=== PATIENT | male | born 1945 | race Caucasian/White ===

== ENCOUNTER 2021-09-01 00:42 | Emergency (ER) | payer MEDICARE, OTHER, SELFPAY ==
--- NOTE | ~2021-09-01 | XR_ITS ---
EXAMINATION: XR chest 1V portable INDICATION: Shortness of breath TECHNIQUE: Portable AP chest at 0142 hours COMPARISON: None available FINDINGS: There is mild atelectasis of the left lung base. The lungs are free of focal airspace opaci ties. There is no pleural effusion or pneumothorax. The cardiac mediastinal silhouette is normal. Cor onary artery stents are noted. IMPRESSION: 1. No acute cardiopulmonary abnormality. Reviewed, dictated and finalized at location A. NCIAL AID ADMINISTRATOR
--- NOTE | 2021-09-01 00:44 | ECG_ITS ---
Measurements Intervals [place] Rate: 102 P: NM: 0 QRS: 43 QRSD: 115 T: 78 QT: 312 QTc: 408 Interpretive Statements SINUS OR ECTOPIC ATRIAL TACHYCARDIA ATRIAL PREMATURE COMPLEX INTRAVENTRICULAR CONDUCTION DELAY BASELINE ARTIFACT- I, II, III, AVR, AVL, AVF, V1-V6 ABNORMAL ECG Electronically Signed On 09-01-2021 7:57:42 E COMMERCE MANAGER by Jones Carl D.O.
[2021-09-01 00:45] VITALS: BP 158/107; PULSE 101; RESP 22; TEMP 36.9; O2SAT 97
[2021-09-01 00:54] VITALS: O2SAT 100
[2021-09-01 01:17] LABS: Basophils Percent Auto 0.3 % (0.2-1.2); Eosinophils Absolute Auto 0.2 K/mm3 (0-0.3); Eosinophils Percent Auto 1.8 % (0-4.4); Hematocrit 42.4 % (42.0-52.0); Hemoglobin 13.1 g/dL (14.0-18.0); Immature Granulocyte Absolute 0.02 K/mm3 (0.00-0.031); Immature Granulocyte Percent A 0.2 % (0-0.5); Lymphocytes Absolute Auto 0.55 K/mm3 (0.9-3.2); Lymphocytes Percent Auto 5.9 % (18.3-44.2); Mean Corpuscular HGB Conc 30.9 g/dl (32-36); Mean Corpuscular Hemoglobin 28.6 pg (26-34); Mean Corpuscular Volume 92.6 fl (80-100); Mean Platelet Volume 10.2 fl (7.4-10.4); Monocytes Absolute Auto 0.2 K/mm3 (0.1-0.6); Monocytes Percent Auto 1.6 % (2.6-8.5); Neutrophils Absolute Auto 8.5 K/mm3 (1.3-6.7); Neutrophils Percent Auto 90.2 % (45.5-73.1); Platelet Count Result 190 k/mm3 (150-375); Red Blood Count 4.58 M/mm3 (4.6-6.20); Red Cell Distribution Width 13.5 % (11.5-14.5); White Blood Count 9.4 K/mm3 (4.5-10.0)
[2021-09-01 01:36] LABS: Alanine Aminotransferase 14 U/L (4-50); Albumin Level 4.7 g/dL (3.5-5.1); Alkaline Phosphatase 89 U/L (38-126); Anion Gap 12 mmol/L (8-16); Aspartate Amino Transferase 22 U/L (17-59); Bilirubin,Total 0.9 mg/dL (0.2-1.3); Blood Urea Nitrogen 31 mg/dL (9-20); Calcium 10.1 mg/dL (8.4-10.2); Carbon Dioxide 27 mmol/L (22-30); Chloride 100 mmol/L (98-107); Estimated CRCL calculation 35 ml/min; Estimated Glomerular Filt Rate 42; Glucose 100 mg/dL (65-110); Potassium 3.6 mmol/L (3.4-5.0); Sodium 139 mmol/L (137-145)
[2021-09-01 01:37] LABS: Alveolar/Arterial O2 Gradient 33.9 mmHg; Base Excess ABG 2.3 mEq/l (+/-2.0); Carboxyhemoglobin 0.3 % THb (0-2.0); Fractional Inspired Oxygen 21 %; HCO3 ABG 24.8 mEq/l (22.0-26.0); Methemoglobin ABG 0.2 %THb (0-1.5); Oxygen Content ABG 17.2 %vol (16.0-22.0); Oxygen Saturation ABG 96.6 % (95.0-100.0); Oxyhemoglobin 94.6 % THb (90.0-100.0); PO2 ABG 77.5 mmHg (80.0-100.0); PO2 FiO2 Ratio Arterial Blood 3.69 %; Reduced Hemoglobin 4.9 %THb (0-5.0); Total Hemoglobin 12.9 g/dL (12.0-18.0)
[2021-09-01 01:37] LABS: INR 1.1; Prothrombin Time 14.2 Seconds (11.1-14.7)
[2021-09-01 01:38] LABS: Device ROOM AIR; Modified Allen's Test Pass; Site Drawn RIGHT RADIAL; pH ABG 7.507 (7.350-7.450)
[2021-09-01 01:38] LABS: Partial Thromboplastin Time 27.4 SECONDS (22.3-36.8)
[2021-09-01] MEDS: LORazepam (*CRX) 0.5 MG TABLET PO (01:45)
[2021-09-01 01:48] LABS: NT Pro B Type Natriuretic Pept 66 pg/mL (5-100); Troponin I < 0.012 ng/mL (0.000-0.034)
[2021-09-01 02:04] VITALS: BP 115/72; PULSE 97; RESP 17; O2SAT 96
--- NOTE | 2021-09-01 02:18 | ED.SOB ---
HPI - SOB/Dyspnea General Chief Complaint: Shortness of Breath/Dyspnea Stated Complaint: SOB Time Seen by Provider: 09/01/21 00:45 Source: patient, RN notes reviewed and old records reviewed Mode of arrival: ambulatory Limitations: no limitations History of Present Illness HPI Narrative: This is a 75 male with history CAD s/p stent, anemia, atrial fibrillation who presents for evaluation of shakiness and shortness of breath. Patient states no one has been able to help him for 3 years. He has been placed on multiple medication which have not helped him. He states tonight he was shaking all over and felt short of breath. She also reports numbness in his hands. He is denying chest pain, cough, fever, neck pain, nausea, or vomiting. He denies melena. Related Data Home Medications Medication Instructions Recorded Confirmed allopurinol 100 mg tablet 100 mg PO DAILY 12/20/20 03/05/21 clopidogrel 75 mg tablet 75 mg PO DAILY 12/20/20 03/05/21 levothyroxine 50 mcg capsule 50 mcg PO DAILY 12/20/20 03/05/21 montelukast 10 mg tablet 10 mg PO DAILY 12/20/20 03/05/21 rivaroxaban 2.5 mg tablet 2.5 mg PO BID 12/20/20 03/05/21 tamsulosin 0.4 mg capsule 0.4 mg PO DAILY 12/20/20 03/05/21 atorvastatin 09/01/21 calcitriol 09/01/21 cyanocobalamin (vitamin B-12) mcg 09/01/21 [Vitamin B-12] ergocalciferol (vitamin D2) 09/01/21 ag-bo-DU-vit T-ykddo-ffgw-zeax tablet PO 09/01/21 [Ocuvite Eye Plus Multi] Allergies Allergy/AdvReac Type Severity Reaction Status Date / Time Penicillins Allergy Mild Unknown Verified 09/01/21 00:51 Review of Systems Review of Systems: All systems reviewed & are unremarkable except as noted in HPI and below PMFSH Past Medical History Medical History (Updated 09/01/21 @ 02:32 by Shannon Muniz MD) Atrial fibrillation Coronary artery disease Kidney disease Surgical History Surgical History (Updated 09/01/21 @ 02:22 by Shannon Muniz MD) History of coronary artery stent placement Social History Social History Smoking status: Never smoker Alcohol intake: never Substance use: never Substance use type: does not use Exam Const: General: alert Orientation/consciousness: patient oriented x3 Other: appears anxious HENMT: Head: normocephalic and atraumatic Face and sinus: face symmetric Mouth: Yes Normal oral and palatal mucosa present, Yes lip normal, Yes oropharynx normal and Yes moist mucous membranes Eyes: Pupils: Equal, round and reactive pupils present EOM: EOMs intact bilaterally Chest: Chest palpation & inspection: normal inspection of the chest Resp: Effort & Inspection: normal respiratory effort and no retractions Auscultation: clear to auscultation bilaterally Cardio: Rate: regular rate Rhythm: abnormal rhythm Heart sounds: no murmurs GI: GI Palp: Yes Soft to palpation, No Tenderness to palpation present (GI) and No Guarding due to palpation present (GI) Auscultation: normal bowel sounds Neuro: General: patient oriented x3, moves all extremities and CN's II-XI intact bilaterally Extrem: General: normal to inspection Psych: Mental Status: mental status grossly normal Affect: Anxious affect present Course Reevaluation(s) Reevaluation #1: Patient appeared anxious on initial assessment. He states his shaking has improved. He has not focal weakness. He still has restlessness to right leg and mouth. He reports he has been dealing with this for 3 years. He has been prescribed cogentin but he states does not take any more. He state it makes his mouth dry. His labs are unremarkable. His shortness of breath seems to be due to anxiety. He has appointment with cardiology next week. He is not having chest pain or any distress.He has known atrial fibrillation and he is not currently anticoagulated due to recent bout of melena . he has been restarted on plavix. This is according to cardiology note
[2021-09-01] MEDS: BENZTROPINE MESYLATE INJ 1 MG/ML AMPUL IM (02:25)
--- NOTE | 2021-09-01 02:28 | PC.NURSE ---
Patient ambulated to the bathroom and back to the stretcher with a steady gait. Patient refused to get connected back to the monitor and pulled off his leads. Patient stated I am going home, I don't need that on me now.
--- NOTE | 2021-09-01 02:42 | PC.NURSE ---
Contacted patients upon request. Informed her that the patient is being discharged, she stated she will come to pick him up.
== END 2021-09-01 02:56 | disposition home or self-care (01) ==
PROVIDERS: Emergency Provider General Practice; PCP Internal Medicine
DX: I48.91 Unspecified atrial fibrillation (principal); F41.9 Anxiety disorder, unspecified; R00.0 Tachycardia, unspecified; I25.10 Atherosclerotic heart disease of native coronary artery without angina pectoris; N28.9 Disorder of kidney and ureter, unspecified; R06.02 Shortness of breath
CPT/HCPCS: 36415; 36600; 71045; 80053; 82375; 82805; 83050; 83880; 84484; 85025; 85610; 85730; 93005; 96372; 99284; A9270; J0515

== ENCOUNTER 2021-12-16 09:32 | Emergency (ER) | payer MEDICARE, OTHER, SELFPAY ==
[2021-12-16] VITALS (32 sets, daily range): BP systolic 137–164; BP diastolic 73–94; PULSE 60–84; RESP 14–22; TEMP 36.6–37; O2SAT 94–100
--- NOTE | ~2021-12-16 | XR_ITS ---
EXAMINATION: XR chest 2V DATE: 12/16/2021 10:58 INDICATION: Shortness of breath and epistaxis TECHNIQUE: PA and lateral views of the chest were obtained. COMPARISON: Chest radiograph dated 09/01/2021 FINDINGS: Normal streaky atelectasis at the right costophrenic angle. No other airspace opacities, pulmonary ed portia, pleural effusion or pneumothorax. The cardiomediastinal silhouette is normal. Coronary artery st enting. Old right second rib fracture. IMPRESSION: 1. Minimal atelectasis at the right costophrenic angle. Reviewed, dictated and finalized at location A.
[2021-12-16 10:17] LABS: Basophils Percent Auto 0.6 % (0.2-1.2); Eosinophils Absolute Auto 0.2 K/mm3 (0-0.3); Eosinophils Percent Auto 4.1 % (0-4.4); Hematocrit 36.8 % (42.0-52.0); Hemoglobin 11.2 g/dL (14.0-18.0); Immature Granulocyte Absolute 0.01 K/mm3 (0.00-0.031); Immature Granulocyte Percent A 0.2 % (0-0.5); Lymphocytes Absolute Auto 1.03 K/mm3 (0.9-3.2); Lymphocytes Percent Auto 20.1 % (18.3-44.2); Mean Corpuscular HGB Conc 30.4 g/dl (32-36); Mean Corpuscular Hemoglobin 27.1 pg (26-34); Mean Corpuscular Volume 88.9 fl (80-100); Mean Platelet Volume 9.4 fl (7.4-10.4); Monocytes Absolute Auto 0.4 K/mm3 (0.1-0.6); Monocytes Percent Auto 8.4 % (2.6-8.5); Neutrophils Absolute Auto 3.4 K/mm3 (1.3-6.7); Neutrophils Percent Auto 66.6 % (45.5-73.1); Platelet Count Result 183 k/mm3 (150-375); Red Blood Count 4.14 M/mm3 (4.6-6.20); Red Cell Distribution Width 14.2 % (11.5-14.5); White Blood Count 5.1 K/mm3 (4.5-10.0)
[2021-12-16 10:31] LABS: INR 1.2; Prothrombin Time 14.6 Seconds (11.1-14.7)
[2021-12-16 10:32] LABS: Partial Thromboplastin Time 29.7 SECONDS (22.3-36.8)
--- NOTE | 2021-12-16 10:41 | ECG_ITS ---
Measurements Intervals [place] Rate: 67 P: 26 MN: 189 QRS: 40 QRSD: 92 T: 54 QT: 399 QTc: 424 Interpretive Statements SINUS RHYTHM WITH OCCASIONAL VENTRICULAR PREMATURE COMPLEXES COMPARED TO ECG 09/01/2021 00:49:13 S HEART RATE REDUCED, PVCS ARE PRESENT Electronically Signed On 12-16-2021 20:46:12 CDT by Wm Sarah M.D.
--- NOTE | 2021-12-16 10:45 | ED.EPISTAXIS ---
HPI - Epistaxis General Chief complaint: Epistaxis <Aamnda Vicente PA-C - Last Filed: 12/16/21 14:15> Stated complaint: epistaxis <Amanda Vicente PA-C - Last Filed: 12/16/21 14:15> Time Seen by Provider: 12/16/21 09:44 <Amanda Vicente PA-C - Last Filed: 12/16/21 14:15> Source: patient <KODI Romano Last Filed: 12/16/21 14:15> Mode of arrival: ambulatory <KODI Romano Last Filed: 12/16/21 14:15> Limitations: no limitations <Amanda Vicente PA-C - Last Filed: 12/16/21 14:15> History of Present Illness HPI Narrative: This is a 76-year-old male that presents to the emergency department for epistaxis. Started at 930 this morning. Reports over the last couple of weeks he has been waking up and blowing blood clots out of his nose. He saw Dr. Cisneros for this a week ago. Started him on a nasal ointment. Presented this morning for an episode of epistaxis that he was having trouble controlling. He is on rivaroxaban daily for atrial fibrillation. He also reports that he has been short of breath for about 6 months. He has been following with pulmonology for this. He was started on some inhalers with little relief. Denies fever, chest pain, cough, or lower extremity edema. <Amanda Vicente PA-C - Last Filed: 12/16/21 14:15> Related Data Home medications: Home Medications Medication Instructions Recorded Confirmed allopurinol 100 mg tablet 100 mg PO DAILY 12/20/20 12/13/21 clopidogrel 75 mg tablet 75 mg PO DAILY 12/20/20 12/13/21 levothyroxine 50 mcg capsule 50 mcg PO DAILY 12/20/20 12/13/21 montelukast 10 mg tablet 10 mg PO DAILY 12/20/20 12/13/21 rivaroxaban 2.5 mg tablet 2.5 mg PO BID 12/20/20 12/13/21 tamsulosin 0.4 mg capsule 0.4 mg PO DAILY 12/20/20 12/13/21 atorvastatin 09/01/21 12/13/21 calcitriol 09/01/21 12/13/21 cyanocobalamin (vitamin B-12) mcg 09/01/21 12/13/21 [Vitamin B-12] ergocalciferol (vitamin D2) 09/01/21 12/13/21 qq-ss-XX-vit Q-hkynm-gsna-zeax tablet PO 09/01/21 12/13/21 [Ocuvite Eye Plus Multi] <Amanda Vicente PA-C - Last Filed: 12/16/21 14:15> Allergies/adverse reactions: Allergies Allergy/AdvReac Type Severity Reaction Status Date / Time Penicillins Allergy Mild Unknown Verified 12/16/21 10:04 <Amanda Vicente PA-C - Last Filed: 12/16/21 14:15> Review of Systems Review of Systems: CONSTITUTIONAL: Denies fever ENT: Reports epistaxis CARDIOVASCULAR: Denies chest pain, or edema. RESPIRATORY: Denies dyspnea. <Amanda Vicente PA-C - Last Filed: 12/16/21 14:15> All systems reviewed & are unremarkable except as noted in HPI and below <Amanda Vicente PA-C - Last Filed: 12/16/21 14:15> PMFSH Past Medical History Medical History: Medical History Atrial fibrillation Coronary artery disease Kidney disease <Amanda Vicente PA-C - Last Filed: 12/16/21 14:15> Surgical History Surgical History: Surgical History History of coronary artery stent placement <Amanda Vicente PA-C - Last Filed: 12/16/21 14:15> Social History Social History: Social History Smoking status: Never smoker Alcohol intake: never Substance use: never Substance use type: does not use <Amanda Vicente PA-C - Last Filed: 12/16/21 14:15> Exam Narrative: GENERAL: Well-appearing, well-nourished, and in no acute distress. HEAD: Normocephalic, atraumatic. EYES: EOMI. ENT: Dried blood in the left nare. Mucous membranes moist. Oropharynx without tonsillar hypertrophy exudate or other lesions. NECK: Supple. No adenopathy or masses. CHEST: Clear to auscultation. No respiratory distress. No wheezes rales or rhonchi HEART: Regular rate and rhythm. No murmur heard. Normal peripheral pulses. EXTREMITIES: Normal range of motion. No edema. SKIN:
[2021-12-16 11:00] LABS: Anion Gap 7 mmol/L (8-16); Blood Urea Nitrogen 25 mg/dL (9-20); Calcium 9.3 mg/dL (8.4-10.2); Carbon Dioxide 28 mmol/L (22-30); Chloride 106 mmol/L (98-107); Estimated CRCL calculation 35 ml/min; Estimated Glomerular Filt Rate 42; Glucose 99 mg/dL (65-110); Potassium 3.5 mmol/L (3.4-5.0); Sodium 141 mmol/L (137-145)
[2021-12-16 11:10] LABS: NT Pro B Type Natriuretic Pept 147 pg/mL (5-100); Troponin I < 0.012 ng/mL (0.000-0.034)
[2021-12-16] MEDS: IPRATROPIUM BR 0.02% INH SOLN 0.5 MG/2.5 ML VIAL INHALATION (13:23)
--- NOTE | 2021-12-16 14:23 | PC.NURSE ---
IN ROOM TO DC PT AND LEFT NARE STARTED TO DRIP BLOOD AGAIN
--- NOTE | 2021-12-16 15:39 | PC.NURSE ---
ERP INSERT RHINO ROCKET INTO LEFT NARE.
--- NOTE | 2021-12-16 16:50 | PC.NURSE ---
ERP INCREASED PRESSURE TO RHINO ROCKET
== END 2021-12-16 18:39 | disposition home or self-care (01) ==
PROVIDERS: Physician Assistant; Emergency Provider Emergency Medicine; PCP Internal Medicine
DX: R04.0 Epistaxis (principal); R06.02 Shortness of breath; I48.91 Unspecified atrial fibrillation; I25.10 Atherosclerotic heart disease of native coronary artery without angina pectoris; N28.9 Disorder of kidney and ureter, unspecified; Z95.5 Presence of coronary angioplasty implant and graft; Z79.01 Long term (current) use of anticoagulants
CPT/HCPCS: 30901; 36415; 71046; 80048; 83880; 84484; 85025; 85610; 85730; 93005; 94640; 99284; A9270

== ENCOUNTER 2022-05-01 08:56 | Outpatient (CLI) | payer MEDICARE, OTHER, SELFPAY ==
--- NOTE | 2022-05-01 11:00 | NEURO_ITS ---
Impression: # Complains of numbness of lower extremities. # Nerve conduction study compatible with neuropathy. # Needle/EMG exam revealed no active denervation but decreased motor unit potentials suggestive of chronic denervation. Nerve Conduction Studies Anti Sensory Summary Table Stim Site NR Peak (ms) P-T Amp (?V) Site1 Site2 Delta-P (ms) Dist (cm) Romero (m/s) Left Sup Fibular Anti Sensory (Ant Lat Mall) 14 cm 3.7 7.6 14 cm Ant Lat Mall 3.7 16.0 43 Right Sup Fibular Anti Sensory (Ant Lat Mall) 14 cm 3.4 9.3 14 cm Ant Lat Mall 3.4 16.0 47 Left Sural Anti Sensory (Lat Mall) NO RESPONSE Calf NR Calf Lat Mall 16.0 Right Sural Anti Sensory (Lat Mall) Calf 3.7 9.9 Calf Lat Mall 3.7 16.0 43 Motor Summary Table Stim Site NR Onset (ms) O-P Amp (mV) Site1 Site2 Delta-0 (ms) Dist (cm) Romero (m/s) Left Peroneal Motor (Vastus Med) Ankle 4.8 0.1 Popit Ankle 10.2 42.0 41 Popit 15.0 0.7 Right Peroneal Motor (Vastus Med) Ankle 5.0 1.0 Popit Ankle 9.3 37.0 40 Popit 14.3 0.9 Left Tibial Motor (Abd Moncada Brev) Ankle 5.1 2.8 Knee Ankle 9.7 39.0 40 Knee 14.8 2.8 Right Tibial Motor (Abd Moncada Brev) Ankle 5.0 1.5 Knee Ankle 11.4 42.0 37 Knee 16.4 1.4 F Wave Studies NR F-Lat (ms) L-R F-Lat (ms) Left Peroneal (Mrkrs) (EDB) 57.70 1.29 Right Peroneal (Mrkrs) (EDB) 58.99 1.29 Left Tibial (Mrkrs) (Abd Hallucis) 60.87 1.06 Right Tibial (Mrkrs) (Abd Hallucis) 59.81 1.06 EMG Side Muscle Nerve Root Ins Act Fibs Amp Dur Recrt Comment Right AntTibialis Dp Br Fibular L4-5 Nml Nml Nml Nml Reduced Right Gastroc Tibial S1-2 Nml Nml Nml Nml Reduced Right Fibularis Long Sup Br Fibular L5-S1 Nml Nml Nml Nml Reduced Right Flex Dig Long Tibial L5-S2 Nml Nml Nml Nml Reduced Right Ext Dig Brev Dp Br Fibular L5, S1 Nml Nml Nml Nml Reduced Left AntTibialis Dp Br Fibular L4-5 Nml Nml Nml Nml Reduced Left Gastroc Tibial S1-2 Nml Nml Nml Nml Reduced Left Fibularis Long Sup Br Fibular L5-S1 Nml Nml Nml Nml Reduced Left Flex Dig Long Tibial L5-S2 Nml Nml Nml Nml Reduced Left Ext Dig Brev Dp Br Fibular L5, S1 Nml Nml Nml Nml Reduced Right QuadratusFem QuadFemoris L4-5, S1 Nml Nml Nml Nml Reduced Left QuadratusFem QuadFemoris L4-5, S1 Nml Nml Nml Nml Reduced MTDD
== END 2022-05-01 08:57 | disposition home or self-care (01) ==
LOC: ANHNEURO 08:58
PROVIDERS: PCP Internal Medicine; Visit Provider Podiatrist Foot & Ankle Surgery
DX: G60.9 Hereditary and idiopathic neuropathy, unspecified (principal)
CPT/HCPCS: 95886; 95910

== ENCOUNTER 2022-12-05 14:22 | Outpatient (CLI) | payer MEDICARE, OTHER, SELFPAY ==
[2022-12-05 14:57] LABS: INR 1.3; Prothrombin Time 15.4 Seconds (11.1-14.7)
[2022-12-05 14:58] LABS: Anion Gap 5 mmol/L (8-16); Blood Urea Nitrogen 39 mg/dL (9-20); Calcium 8.8 mg/dL (8.4-10.2); Carbon Dioxide 29 mmol/L (22-30); Chloride 106 mmol/L (98-107); Estimated Glomerular Filt Rate 39; Glucose 86 mg/dL (65-110); Partial Thromboplastin Time 30.6 SECONDS (22.3-36.8); Potassium 4.1 mmol/L (3.4-5.0); Sodium 140 mmol/L (137-145)
== END 2022-12-05 14:23 | disposition home or self-care (01) ==
PROVIDERS: PCP Internal Medicine; Visit Provider Anesthesiology
DX: K40.90 Unilateral inguinal hernia, without obstruction or gangrene, not specified as recurrent (principal); Z01.818 Encounter for other preprocedural examination
CPT/HCPCS: 36415; 80048; 85610; 85730; 86850; 86900; 86901

== ENCOUNTER 2022-12-09 02:20 | Day surgery (SDC) | payer MEDICARE, OTHER, SELFPAY ==
[2022-12-02 15:12] VITALS: BMI 29.2
--- NOTE | 2022-12-02 15:25 | PC.NURSE ---
PRE-OP INSTRUCTIONS, PLEASE READ CAREFULLY Report to the Outpatient Waiting Room, entrance under the green pavilion located off [facility], at time _1100_ on date _12/09/22_. Planned Procedure Time: _1 PM_. Time changes happen often and if your time is changed the preop area will call you the afternoon before. - You and your visitor will be asked to self-screen and do not enter if you have any COVID symptoms. - Only one visitor is requested with a max of two and NO children visitors are allowed at this time. - The patient visitor may be requested to leave or wait in car when not with patient due to distancing restrictions. - A mask is optional within the hospital at this time. Patients may have clear liquids (water, carbonated beverages, clear teas, apple juice) until 3 hours prior to surgery (1000 AM) with a maximum of 20 ounces. - No food from midnight until time of surgery Take the following medications with a SIP of water the morning of surgery: _LEVOTHYROXINE, MONTELUKAST_ DO NOT STOP ANY OF YOUR OTHER PRESCRIPTION MEDICATIONS PRIOR TO SURGERY ?EXCEPT THE FOLLOWING Medications to discontinue _ELIQUIS AND CLOPIDOGREL PER DR. NORTH'S INSTRUCTIONS_ Medications to discontinue per ANESTHESIA -_MULTIVITAMIN 3 DAYS PRIOR TO SURGERY, Date to take last dose 12/05/22_ Please no make-up, nail maltese, hairspray, perfume, deodorant, or body powder the day of surgery. No jewelry (including any body piercings) or valuables the day of surgery, leave them at home. Please take a shower or bath the night before, or the morning of, surgery with an antibacterial soap. Wear comfortable, loose fitting clothing. - Jewelry must be removed prior to entering the operating room. Rings and piercings that are not removed may be cut off. - The hospital will not accept responsibility for valuables. - Please leave all valuables, including medications, at home the day of surgery. If you are going home after surgery, a licensed team otr truck driver must drive you home. - NO public transportation without another adult if you receive anesthesia. - We recommend that an adult stay with you for 24 hours following discharge. - We also recommend that you do not drive, make important decision, drink alcoholic beverages, or take any drugs that were not prescribed by your health care provider for at least 24 hours after your discharge time. Follow any additional instructions given to you from your surgeon. - HIBICLENS SHOWER AM OF SURGERY If you or anyone in your household have experienced Covid symptoms in the past week, please notify your surgeon or the nurse liaison at the phone number below for possible testing. Telephone instructions given to _PATIENT_and asked if any additional questions and then verbalized understanding. Patient advised to call surgeon office or pre surgery nurse liaison [phone] if any additional questions.
[2022-12-09] VITALS (9 sets, daily range): BP systolic 121–159; BP diastolic 61–98; PULSE 66–83; RESP 14–24; TEMP 36.7–37.2; O2SAT 96–100
--- NOTE | 2022-12-09 11:50 | WPDHPUPDATE1 ---
History and Physical Update Update Date/Time: 12/09/22 11:50 History and Physical has been reviewed, including an updated exam of the patient. There are NO changes in the patient's condition. Risks, benefits, and alternatives have been discussed and questions answered. Patient agrees to proceed with procedure.
[2022-12-09] MEDS: ACETAMINOPHEN 500 MG TABLET 1000 MG PO (12:40)
--- NOTE | 2022-12-09 12:47 | P.PNAN_ITS ---
Anes - Initial Pre Proc Eval Procedure: Operation Date: 12/09/22 13:00 Proposed Procedures p Robotic Laparoscopic Repair Left Inguinal Hernia - Sky Alex MD Date/Time: 12/09/22 12:47 Surgeon: Sky Alex MD Pre Op Diagnosis: left inguinal hernia Patient Data Age: 76 Gender: M Height: 1.75 m Weight: 90 kg Allergies Allergy/AdvReac Type Severity Reaction Status Date / Time Penicillins Allergy Mild Unknown- Verified 12/09/22 13:04 A CHILD Home Medications Medication Instructions Recorded Confirmed Type allopurinol 100 mg tablet 100 mg PO DAILY 12/20/20 12/05/22 History clopidogrel 75 mg tablet 75 mg PO DAILY 12/20/20 12/05/22 History levothyroxine 50 mcg capsule 50 mcg PO DAILY 12/20/20 12/05/22 History montelukast 10 mg tablet 10 mg PO DAILY 12/20/20 12/05/22 History tamsulosin 0.4 mg capsule (Flomax) 0.4 mg PO DAILY 12/20/20 12/05/22 History atorvastatin 10 mg tablet 10 mg HS 09/01/21 12/05/22 History calcitriol 0.25 mcg capsule 0.25 mcg DAILY 09/01/21 12/05/22 History ergocalciferol (vitamin D2) 1,250 50,000 unit WEEKLY 09/01/21 12/05/22 History mcg (50,000 unit) capsule apixaban 5 mg tablet (Eliquis) 5 mg DAILY 12/02/22 12/05/22 History cetirizine 10 mg tablet 10 mg PO DAILY PRN Congestion 12/02/22 12/05/22 History multivitamin 1 tablet PO DAILY 12/02/22 12/05/22 History Patient hx anesthesia problems: none Family hx anesthesia problems: none Results Review: All pre-operative results and documents have been reviewed as part of the pre- operative evaluation. [facility] Past Medical History Medical History Atrial fibrillation Coronary artery disease Kidney disease Surgical History Surgical History History of coronary artery stent placement Social History Social History Smoking status: Never smoker Second hand tobacco smoke exposure: No Alcohol intake: never Substance use: never Substance use type: does not use Lack of Transportation: No Lack of Food: Never True Current Housing: I Have Housing Concerned About Future Housing: No Difficulty Paying Gas/Electric Bills: No Difficulty Paying for Meds: No Currently Unemployed: No Education: High School Diploma/GED Difficulty w/ Childcare or Family Care: No Living arrangements: with family Spiritual care concerns: No Anes - Eval Final PreProcedure Day of Procedure 12/09/22 12:47 Patient weight: obese Heart: regular rate and rhythm Lungs: clear to auscultation and wheezes (mild) Airway: Mallampati scale class II Neurological: alert and oriented ASA classification: III Emergent: no Anesthesia type and monitoring: general ETT and standard monitoring Results Review: All pre-operative results and documents have been reviewed as part of the pre- operative evaluation. Informed Consent: The patient's anesthetic plan and its attendant risks and benefits were discussed with the patient/family/POA. Questions were solicited and answers provided to the satisfaction of the patient/family/POA.
[2022-12-09] MEDS: LACTATED RINGERS 1,000 ML 30 ML IV CONT ×3 (12:54→16:45)
[2022-12-09] MEDS: KETOROLAC 15 MG/ML VIAL (*BKC) IV PUSH (12:57)
[2022-12-09 13:12] LABS: INR 1.2; Prothrombin Time 14.6 Seconds (11.1-14.7)
[2022-12-09] MEDS: ceFAZolin 2 GM/D5W 50 ML 2 GM/50 ML BAG IVPB (13:53)
[2022-12-09] MEDS: BUPIVACAINE/EPINEPHRINE 0.25% 50 ML VIAL 30 ML INFILTRATE (14:09)
--- NOTE | 2022-12-09 15:56 | W.PM.PROC2 ---
Procedure Note - Detailed Date of Procedure 12/09/22 Pre-op Diagnosis left inguinal hernia Post-op Diagnosis Same Procedure Performed Robotic laparoscopic repair of left inguinal hernia with 3DMax mesh Surgeon Sky Alex MD Competency Evaluated Nurse Aide Mac BARR, Everardo BARR Anesthesia General and Local Indications Patient is a 76-year-old man who has a tender but reducible left inguinal hernia. This showed up on CT scan and also the patient had some of his sigmoid colon at the entrance of the hernia defect. He is taken to surgery now for robotic laparoscopic repair. Findings Patient had both a direct and an indirect hernia. There were numerous diverticuli in the sigmoid colon and there were adhesions of the sigmoid and epiploica to the peritoneum around the hernia defect. Patient also had some anterior abdominal wall adhesions from previous appendectomy with scar in the right lower quadrant. The larger defect was the indirect hernia, there was also a smaller direct hernia noted. Description of Procedure The patient was taken to surgery and induced into general anesthesia. The abdomen was prepped and draped. The initial trocar was a 5 mm applied Medical optical trocar and was placed just above the umbilicus in the midline. We insufflated and then placed 2 8 mm trocars on either side of the 5 mm trocar under direct visualization. I then exchanged the 5 mm trocar for another 8 mm robotic trocar. The robot was then brought into the field. The camera was docked and targeted. We then placed the right and left-sided ports into the area of the hernia defect. The surgeon then went to the robotic console. It was necessary to initially take down adhesions of the epiploica and the sigmoid colon from the peritoneum as it was obscuring the view of the inguinal anatomy. Most of these adhesions were taken down. Dissection was then started at the median umbilical ligament. Peritoneum was scored across above the inguinal anatomy. A peritoneal flap was developed proceeding from anterior to posterior. Matthew's ligament in the pubic tubercle were exposed medially. We then continued developing the flap lateral to the spermatic cord and indirect hernia. We then went back to the area of the indirect hernia and dissected the hernia sac out of the internal ring. Some lipomatous tissue the cord was also dissected and divided. During the dissection, some of the adhesions to the colon and omentum remained. This precipitated a hole in the peritoneum at the hernia sac. I continued dissection of the hernia sac and eventually completely reduced it and dissected it free of the cord structures. I then went back and exposed the peritoneum and freed the remaining adhesions to the peritoneum to facilitate closure of the peritoneum once the hernia had been repaired. Further dissection of the peritoneal flap off the cord structures was carried out. A 17 x 12 cm 3D max mesh was then introduced. Three Vicryl sutures were placed to secure the mesh. One was placed in Matthew's ligament. One was placed medial to the inferior epigastric vessels anteriorly. The 3rd was placed lateral to the inferior epigastric vessels anteriorly. The mesh looked to be in good position. A peritoneal flap was then closed with running 2-0 V lock. The opening in the flap was closed with 3-0 Vicryl interrupted suture. The robotic instruments were removed. The robot was undocked. The trocars were removed. Skin wounds were closed with subcuticular 4-0 Monocryl skin suture. The wounds were dressed with Exofin surgical adhesive. Patient was taken to recovery in good condition. Sponge needle counts were correct x2. Implants 17 x 12 cm 3D max mesh Estimated Blood Loss -10 Drains No Packing No Pathology None sent Complications No immediate complications Condition Stable Disposition PACU [facility] Billing Surgery - Charge Forward: Surgery Billing (Robotic laparoscopic left inguinal hernia repair with mesh
== END 2022-12-09 18:10 | disposition home or self-care (01) ==
PROVIDERS: Anesthesiology; PCP Internal Medicine; Visit Provider Surgery
PROC: 8E0Y4CZ Robotic Assisted Procedure of Lower Extremity, Percutaneous Endoscopic Approach (ICD-10-PCS; CPT 49650; principal; 2022-12-09 13:00)
DX: K40.90 Unilateral inguinal hernia, without obstruction or gangrene, not specified as recurrent (principal); K66.0 Peritoneal adhesions (postprocedural) (postinfection); I48.91 Unspecified atrial fibrillation; I25.10 Atherosclerotic heart disease of native coronary artery without angina pectoris; N28.9 Disorder of kidney and ureter, unspecified; Z95.5 Presence of coronary angioplasty implant and graft; Z79.02 Long term (current) use of antithrombotics/antiplatelets; Z79.01 Long term (current) use of anticoagulants; E66.9 Obesity, unspecified; Z68.30 Body mass index [BMI] 30.0-30.9, adult
CPT/HCPCS: 49650; S2900; 36415; 80048; 85610; 85730; 86850; 86900; 86901; A9270; C1781; J0690; J1170; J1885; J3010; J7120

== ENCOUNTER 2023-07-18 16:08 | Emergency (ER) | payer MEDICARE, OTHER, SELFPAY ==
[2023-07-18] VITALS (10 sets, daily range): BP systolic 127–171; BP diastolic 76–89; PULSE 62–65; RESP 20–29; TEMP 36.7; O2SAT 96–100
--- NOTE | ~2023-07-18 | CT_ITS ---
EXAMINATION: CT abdomen pelvis w con INDICATION: Hematuria TECHNIQUE: Computed tomographic images of the abdomen and pelvis were obtained after the administrati on of 100 cc of Omnipaque 350 intravenous contrast. The dose-length product (DLP) was 800.98 mGy-cm. Automated exposure control and iterative reconstruction technique were employed. COMPARISON: None available FINDINGS: Minimal dependent atelectasis is present in the lung bases. The heart size is normal. Cysts of the liver measure up to 8 mm in the right hepatic lobe. The spleen, pancreas, gallbladder, and ad renal glands are normal. There is moderate cortical thinning of the kidneys. There are multiple nonob structing stones of the kidneys which measure up to 3 mm on the right and 4 mm on the left. No stones are identified in the ureters or bladder. No hydronephrosis or hydroureter. There is possible mild w all thickening of the right lateral bladder wall. Prostatomegaly is noted. No pathologically enlarged abdominal or pelvic lymph nodes are identified. No free intraperitoneal gas or evidence of bowel obs truction. There is calcified atherosclerosis of the aorta and many of the other arteries. There is mo derate lumbar spondylosis. There is severe lower thoracic spondylosis. IMPRESSION: 1. Possible wall thickening of the right lateral urinary bladder wall. Urologic follow-up is recommen ded. 2. Bilateral nonobstructing nephrolithiasis. Reviewed, dictated and finalized at location F. IMPRESSION: 1. Possible wall thickening of the right lateral urinary bladder wall. Urologic follow-up is recommended. 2. Bilateral nonobstructing nephrolithiasis.
--- NOTE | 2023-07-18 17:58 | ED.MALEGU ---
HPI - Male Genitourinary General Chief complaint: Urogenital-Male <Nasir Stevens MD - Last Filed: 07/19/23 19:41> Stated complaint: sent by PCP for hematuria <Nasir Stevens MD - Last Filed: 07/19/23 19:41> Time Seen by Provider: 07/18/23 16:48 <Nasir Stevens MD - Last Filed: 07/19/23 19:41> History of Present Illness HPI Narrative: This is a 77-year-old male, with history of coronary artery disease, on Eliquis and Plavix, who presents emergency department complaining of hematuria for the past week. The patient states he noticed the blood in urine. He denies bleeding from any other source and denies pain with urination. He was advised by his primary care doctor to seek evaluation. He denies any recent surgeries, instrumentation of or placement of foreign object in the penis. <Nasir Stevens MD - Last Filed: 07/19/23 19:41> Related Data Home medications: Home Medications Medication Instructions Recorded Confirmed allopurinol 100 mg tablet 100 mg PO DAILY 12/20/20 06/02/23 clopidogrel 75 mg tablet 75 mg PO DAILY 12/20/20 06/02/23 levothyroxine 50 mcg capsule 50 mcg PO DAILY 12/20/20 06/02/23 montelukast 10 mg tablet 10 mg PO DAILY 12/20/20 06/02/23 tamsulosin 0.4 mg capsule (Flomax) 0.4 mg PO DAILY 12/20/20 06/02/23 atorvastatin 10 mg tablet 10 mg HS 09/01/21 06/02/23 calcitriol 0.25 mcg capsule 0.25 mcg DAILY 09/01/21 06/02/23 ergocalciferol (vitamin D2) 1,250 50,000 unit WEEKLY 09/01/21 06/02/23 mcg (50,000 unit) capsule apixaban 5 mg tablet (Eliquis) 5 mg DAILY 12/02/22 06/02/23 cetirizine 10 mg tablet 10 mg PO DAILY PRN Congestion 12/02/22 06/02/23 multivitamin 1 tablet PO DAILY 12/02/22 06/02/23 <Nasir Stevens MD - Last Filed: 07/19/23 19:41> Allergies/Adverse reactions: Allergies Allergy/AdvReac Type Severity Reaction Status Date / Time Penicillins Allergy Mild Unknown- Verified 07/18/23 16:08 A CHILD <Nasir Stevens MD - Last Filed: 07/19/23 19:41> Review of Systems Review of Systems: CONSTITUTIONAL: Denies fever, chills, or sweats. CARDIOVASCULAR: Denies chest pain, palpitations, or edema. RESPIRATORY: Denies cough or dyspnea. GASTROINTESTINAL: Denies abdominal pain, nausea, vomiting, or diarrhea. GENITOURINARY: Hematuria Denies dysuria SKIN: Denies rash or itching. MUSCULOSKELETAL: Denies back pain, joint pain, or myalgia. NEUROLOGIC: Denies headache, numbness, dizziness, or weakness. PSYCHIATRIC: Denies anxiety or depression. <Nasir Stevens MD - Last Filed: 07/19/23 19:41> PMFSH Past Medical History Medical History: Medical History Atrial fibrillation Coronary artery disease Kidney disease <Nasir Stevens MD - Last Filed: 07/19/23 19:41> Surgical History Surgical History: Surgical History History of coronary artery stent placement History of left inguinal hernia repair 12/09/22 Robotic laparoscopic repair of left inguinal hernia with 3DMax mesh <Nasir Stevens MD - Last Filed: 07/19/23 19:41> Social History Social History: Social History Smoking status: Never smoker Second hand tobacco smoke exposure: No Alcohol intake: never Substance use: never Substance use type: does not use Lack of Transportation: No Lack of Food: Never True Current Housing: I Have Housing Concerned About Future Housing: No Difficulty Paying Gas/Electric Bills: No Difficulty Paying for Meds: No Currently Unemployed: No Education: High School Diploma/GED Difficulty w/ Childcare or Family Care: No Living arrangements: with family Spiritual care concerns: No <Nasir Stevens MD - Last Filed: 07/19/23 19:41> Exam Narrative: GENERAL: Well-developed, well-nourished, and in no acute distress. HEAD: Normoc
[2023-07-18 18:09] LABS: Basophils Percent Auto 0.7 % (0.2-1.2); Eosinophils Absolute Auto 0.2 K/mm3 (0-0.3); Eosinophils Percent Auto 5.1 % (0-4.4); Hematocrit 36.6 % (42.0-52.0); Hemoglobin 11.4 g/dL (14.0-18.0); Immature Granulocyte Absolute 0.01 K/mm3 (0.00-0.031); Immature Granulocyte Percent A 0.2 % (0-0.5); Lymphocytes Absolute Auto 0.99 K/mm3 (0.9-3.2); Mean Corpuscular HGB Conc 31.1 g/dl (32-36); Mean Corpuscular Hemoglobin 29.5 pg (26-34); Mean Corpuscular Volume 94.6 fl (80-100); Mean Platelet Volume 10.1 fl (7.4-10.4); Monocytes Absolute Auto 0.3 K/mm3 (0.1-0.6); Monocytes Percent Auto 6.9 % (2.6-8.5); Neutrophils Absolute Auto 2.9 K/mm3 (1.3-6.7); Neutrophils Percent Auto 65.1 % (45.5-73.1); Platelet Count Result 207 k/mm3 (150-375); Red Blood Count 3.87 M/mm3 (4.6-6.20); Red Cell Distribution Width 14.8 % (11.5-14.5); White Blood Count 4.5 K/mm3 (4.5-10.0)
[2023-07-18 18:16] LABS: Bacteria Urine None Seen /hpf; Non Pathogenic Casts 0-2; RBC Urine >100 /hpf (0-2); Squamous Epithelial Cell Urine None seen /hpf (Few)
[2023-07-18 18:20] LABS: INR 1.2; Partial Thromboplastin Time 31.4 SECONDS (22.3-36.8); Prothrombin Time 15.4 Seconds (11.1-14.7)
[2023-07-18 18:24] LABS: Alanine Aminotransferase 13 U/L (6-50); Albumin Level 3.5 g/dL (3.5-5.1); Alkaline Phosphatase 68 U/L (38-126); Anion Gap 3 mmol/L (8-16); Aspartate Amino Transferase 21 U/L (17-59); Bilirubin,Total 0.6 mg/dL (0.2-1.3); Blood Urea Nitrogen 26 mg/dL (9-20); Carbon Dioxide 29 mmol/L (22-30); Chloride 109 mmol/L (98-107); Estimated CRCL calculation 29 ml/min; Estimated Glomerular Filt Rate 34; Glucose 87 mg/dL (65-110); Potassium 3.8 mmol/L (3.4-5.0); Sodium 141 mmol/L (137-145)
[2023-07-18 18:28] LABS: Appearance Urine Turbid (Clear); Bilirubin Urine Negative (Negative); Blood Urine 3+ (Negative); Glucose Urine UA Negative (Negative); Ketones Urine Negative (Negative); Leukocyte Esterase Ur 1+ LEU/UL (Negative); Nitrate Urine Negative (Negative); Protein Urine 2+ mg/dL (Negative); Specific Grav Ur 1.016 (1.001-1.035); Urobilinogen Urine 0.2 mg/dL (<2.0)
[2023-07-18 18:51] LABS: Color Urine Dark Yellow (Yellow)
[2023-07-18 18:52] LABS: Add Urine Microscopic? YES
--- NOTE | 2023-07-18 19:22 | PC.NURSE ---
This RN took patient report from JAMES Guzmán. This RN assumed care of patient.
== END 2023-07-18 21:35 | disposition home or self-care (01) ==
PROVIDERS: Preventive Medicine Aerospace Medicine; Emergency Provider Student in an Organized Health Care Education/Training Program; PCP Internal Medicine
DX: N20.1 Calculus of ureter (principal); I25.10 Atherosclerotic heart disease of native coronary artery without angina pectoris; I48.91 Unspecified atrial fibrillation; Z79.01 Long term (current) use of anticoagulants
CPT/HCPCS: 36415; 74177; 80053; 81001; 85025; 85610; 85730; 87077; 87086; 87088; 99284; Q9967

== ENCOUNTER 2024-03-24 07:46 | Outpatient (CLI) | payer MEDICARE, OTHER, SELFPAY ==
--- NOTE | 2024-03-24 16:16 | WPDPFTINT ---
PFT Procedure Performed PFT Procedure Performed Plethysmography (Lung Vol) Diffusing Cap (DLCO) Flow Vol Loop Spirometry w/o Bronchodil PFT Interpretation This is a pulmonary function test with spirometry, plethysmography and diffusing capacity. The test was performed and results interpreted in accordance with the 2019 and 2005 ATS/ERS Task Force guidelines respectively using the Global Lung Function Initiative-2012 reference equations. Patient demonstrated good effort and cooperation. Reproducibility criteria were met. The quality of the spirometry maneuver was Grade A. Of note, patient had good effort but struggled with requirements of the testing. Findings: Spirometry: The contour the expiratory flow tracing is normal. The contour the inspiratory flow tracing is not present. The FVC is 4.10 L, 109% predicted. The FEV1 is 2.95 L, 105% predicted. The FEV1: FVC ratio 72%. Plethysmography: The total lung capacity is 7.62 L, 112% predicted. The functional residual capacity is 4.75 L, 129% predicted. The residual volume is 3.52 L, 137% predicted. Diffusing capacity: The diffusing capacity unadjusted for hemoglobin and carboxyhemoglobin is 26.1, 110% predicted. The diffusing capacity adjusted for alveolar volume is 3.10, 84% predicted. Impression: The spirometry is normal without evidence of an obstructive abnormality. The total lung capacity and functional residual capacity are normal with an increased residual volume. This is an abnormal but nonspecific lung volume pattern. The diffusing capacity is normal. There are no prior studies for comparison
== END 2024-03-24 07:47 | disposition home or self-care (01) ==
LOC: ANHPFT 07:48
PROVIDERS: PCP Internal Medicine; Visit Provider Internal Medicine Cardiovascular Disease
DX: K92.1 Melena (principal); R07.9 Chest pain, unspecified; B97.21 SARS-associated coronavirus as the cause of diseases classified elsewhere; R00.0 Tachycardia, unspecified; R04.0 Epistaxis; R06.82 Tachypnea, not elsewhere classified; I48.0 Paroxysmal atrial fibrillation; E61.1 Iron deficiency; I27.20 Pulmonary hypertension, unspecified; E03.9 Hypothyroidism, unspecified; I48.3 Typical atrial flutter; R55 Syncope and collapse; G47.30 Sleep apnea, unspecified; I65.23 Occlusion and stenosis of bilateral carotid arteries; R53.83 Other fatigue; I25.10 Atherosclerotic heart disease of native coronary artery without angina pectoris; E66.9 Obesity, unspecified; E78.5 Hyperlipidemia, unspecified; I12.9 Hypertensive chronic kidney disease with stage 1 through stage 4 chronic kidney disease, or unspecified chronic kidney disease; N18.9 Chronic kidney disease, unspecified
CPT/HCPCS: 94375; 94726; 94729

== ENCOUNTER 2024-04-01 08:49 | Outpatient (CLI) | payer MEDICARE, OTHER, SELFPAY ==
--- NOTE | ~2024-04-01 | US_ITS ---
EXAMINATION: US_VDOPREFBI_US DATE: 04/01/2024 10:23 INDICATION: Lower limb edema. Other specified soft tissue disorders. TECHNIQUE: Grayscale ultrasound images without and with compression and Doppler ultrasound images of the bilateral lower extremity veins were obtained. COMPARISON: None. FINDINGS: The visualized portions of right common femoral vein, profunda (deep) femoral vein, femoral vein, pop liteal vein, peroneal veins, and posterior tibial veins are patent. Right greater saphenous vein vilma ures 4 mm in the upper thigh, 3 mm in the lower thigh, and 2 mm in the calf. No reflux. Right small s aphenous vein measures 2 mm in the upper calf and 3 mm in the lower calf without reflux. The visualized portions of left common femoral vein, profunda femoral vein, femoral vein, popliteal v ein, peroneal veins, and posterior tibial veins are patent. Left greater saphenous vein measures 3 mm in the upper thigh, 2 mm in the lower thigh, and 1 mm in the calf. No reflux. Left small saphenous v ein measures 1 mm in the upper calf and 1 mm in the lower calf. No reflux. IMPRESSION: 1. No deep venous thrombosis. 2. No reflux. Reviewed, dictated and finalized at location E.
== END 2024-04-01 08:50 | disposition home or self-care (01) ==
PROVIDERS: PCP Internal Medicine; Visit Provider Internal Medicine Cardiovascular Disease
DX: M79.89 Other specified soft tissue disorders (principal)
CPT/HCPCS: 93970